=== PATIENT | female | born 1975 | race Caucasian/White ===

== ENCOUNTER 2021-12-20 13:46 | Outpatient (CLI) | payer OTHER, SELFPAY ==
--- NOTE | 2021-12-20 14:00 | CRLHL7_ITS ---
For Patients: As a result of the Cures Act, medical imaging exams and procedure reports are released immediately into your electronic medical record. You may view this report before your referring provider. If you have questions, please contact your health care provider. BILATERAL SCREENING MAMMOGRAM WITH COMPUTER-AIDED DETECTION AND TOMOSYNTHESIS TECHNIQUE: CC and MLO views were obtained. These mammographic images have been obtained using full-field digital technique. These mammographic images were interpreted with the benefit of computer-aided detection. Breast Tomosynthesis was used in this interpretation. COMPARISON FILM: 12/14/20, 01/18/19, 11/27/17. FINDINGS: The breasts are heterogeneously dense, which may obscure small masses IMPRESSION: There is no radiographic evidence for malignancy. ASSESSMENT: BI-RADS Category 1: Negative RECOMMENDATION: Routine screening mammogram in 1 year. A lay language report of this examination will be provided to the patient. Cricket Browning M.D. Diagnostic Radiologist [email or web address] AMARI/wm / be/Dictated by: Cricket Browning MD @ 12/23/2021 9:39:00 AM (Electronically Signed)
== END 2021-12-20 13:47 | disposition home or self-care (01) ==
LOC: MAMMO 13:47
PROVIDERS: PCP Family Medicine; Visit Provider Family Medicine
DX: Z12.31 Encounter for screening mammogram for malignant neoplasm of breast (principal); R92.2 Inconclusive mammogram
CPT/HCPCS: 77063; 77067

== ENCOUNTER 2022-04-04 13:34 | Outpatient (CLI) | payer OTHER, SELFPAY ==
[2022-04-04 16:14] LABS: Cholesterol* 191 mg/dL (90-199)
[2022-04-04 16:15] LABS: HDL Cholesterol* 91 mg/dL (>=50); LDL Cholesterol Calculated 71 mg/dL (<100); Triglycerides* 145 mg/dL (40-149)
== END 2022-04-04 13:35 | disposition home or self-care (01) ==
PROVIDERS: PCP Family Medicine; Visit Provider Registered Nurse
DX: Z01.419 Encounter for gynecological examination (general) (routine) without abnormal findings (principal); Z13.6 Encounter for screening for cardiovascular disorders; Z13.29 Encounter for screening for other suspected endocrine disorder
CPT/HCPCS: 80061; 84443

== ENCOUNTER 2022-06-12 13:47 | Outpatient (CLI) | payer OTHER, SELFPAY | END 2022-06-12 13:48 | disposition home or self-care (01) | LOC: LONREF 13:49 | PROVIDERS: PCP Family Medicine; Visit Provider Nurse Practitioner Family | DX: R60.9 Edema, unspecified (principal) | CPT/HCPCS: 80053 ==

== ENCOUNTER 2022-09-02 14:56 | Outpatient (CLI) | payer OTHER, SELFPAY | END 2022-09-02 14:57 | disposition home or self-care (01) | LOC: LONREF 14:59 | PROVIDERS: PCP Family Medicine; Visit Provider Family Medicine | DX: Z01.818 Encounter for other preprocedural examination (principal) | CPT/HCPCS: 80048 ==

== ENCOUNTER 2022-12-23 08:32 | Outpatient (CLI) | payer OTHER, SELFPAY ==
--- NOTE | 2022-12-23 08:45 | CRLHL7_ITS ---
For Patients: As a result of the Century Cures Act, medical imaging exams and procedure reports are released immediately into your electronic medical record. You may view this report before your referring provider. If you have questions, please contact your health care provider. BILATERAL SCREENING MAMMOGRAM WITH COMPUTER-AIDED DETECTION AND TOMOSYNTHESIS TECHNIQUE: CC and MLO views were obtained. These mammographic images have been obtained using full-field digital technique. These mammographic images were interpreted with the benefit of computer-aided detection. Breast Tomosynthesis was used in this interpretation. COMPARISON FILM: 12-20-21, 12-13-20, 11-28-19. FINDINGS: The breasts are heterogeneously dense, which may obscure small masses IMPRESSION: There is no radiographic evidence for malignancy. ASSESSMENT: BI-RADS Category 1: Negative RECOMMENDATION: Routine screening mammogram in 1 year. A lay language report of this examination will be provided to the patient. Cricket Browning M.D. Diagnostic Radiologist [email or web address] MATHIEU/Dictated by: Cricket Browning MD @ 12/23/2022 12:29:00 PM (Electronically Signed)
== END 2022-12-23 08:33 | disposition home or self-care (01) ==
LOC: MAMMO 08:33
PROVIDERS: PCP Family Medicine; Visit Provider Registered Nurse
DX: Z12.31 Encounter for screening mammogram for malignant neoplasm of breast (principal); R92.2 Inconclusive mammogram
CPT/HCPCS: 77063; 77067

== ENCOUNTER 2023-05-04 09:06 | Outpatient (CLI) | payer OTHER, SELFPAY ==
--- NOTE | 2023-05-04 10:38 | W.ANESCHARGE ---
Anesthesia Charges Start Date/Time Anesthesia Start Date: 05/04/23 Anesthesia Start Time: 10:10 Stop Date/Time Anesthesia Stop Date: 05/04/23 Anesthesia Stop Time: 10:36
--- NOTE | 2023-05-04 10:49 | W.ANESCHARGE ---
Anesthesia Charges Start Date/Time Anesthesia Start Date: 05/04/23 Anesthesia Start Time: 10:10 Stop Date/Time Anesthesia Stop Date: 05/04/23 Anesthesia Stop Time: 10:36
== END 2023-05-04 09:07 | disposition home or self-care (01) ==
LOC: OP CLINIC 09:07
PROVIDERS: PCP Family Medicine; Visit Provider Surgery
DX: Z12.11 Encounter for screening for malignant neoplasm of colon (principal); K64.4 Residual hemorrhoidal skin tags
CPT/HCPCS: 00811; 00812; 45378; J2704

== ENCOUNTER 2023-05-06 08:26 | Outpatient (CLI) | payer OTHER, SELFPAY ==
--- NOTE | 2023-05-06 08:45 | MM_ITS ---
Patient: NEHEMIAH HOLBROOK Facility:?[facility] Patient ID:?[id number] Site Patient ID:?[id number] Site :?[id number] Study:?XRay-Breast Bilateral 3D W/CAD-05/06/2023 8:57:58 AM Ordering Physician:?Yaquelin Mathew Final Report: BILATERAL DIAGNOSTIC DIGITAL MAMMOGRAM WITH COMPUTER-AIDED DETECTION AND TOMOSYNTHESIS LEFT BREAST ULTRASOUND CLINICAL HISTORY: LEFT breast lump. COMPARISON: 12/23/2022, 12/20/2021, 12/14/2020 TECHNIQUE: Digital BILATERAL mammogram in 4 projections with tomosynthesis and computer- aided detection. Real-time ultrasound imaging of LEFT breast with imaging documentation. BREAST COMPOSITION: The breasts are heterogeneously dense, which may obscure small masses. FINDINGS: 3D CC/MLO bilateral mammogram images submitted. No suspicious masses or architectural distortion. No adenopathy or suspicious calcifications. Targeted left breast ultrasound performed. At 2 o`clock 6 cm from the nipple, normal fibroglandular tissue is present. No fibrocystic change or mass. IMPRESSION: Normal bilateral mammograms and normal targeted left breast ultrasound. No suspicious findings. No evidence of malignancy. RECOMMENDATIONS: Annual bilateral screening mammography. Results and recommendations discussed with the patient. A lay language report of this examination will be provided to the patient. BI-RADS Category 2: Benign. Dictated by Cricket Browning MD @ 05/06/2023 10:13:05 AM CRL:jaquan RD/Dictated by: Cricket Browning MD @ 05/06/2023 10:13:00 AM Signed by:?Cricket Browning MD @05/06/2023 11:10:31 AM (Electronic Signature)
--- NOTE | 2023-05-06 09:15 | US_ITS ---
Patient: NEHEMIAH HOLBROOK Facility:?[facility] Patient ID:?[id number] Site Patient ID:?[id number] Site :?[id number] Study:?US-Breast Left Dr. Browning to read-05/06/2023 9:24:42 AM Ordering Physician:CRYSTAL Final Report: PLEASE SEE BILATERAL DIAGNOSTIC MAMMOGRAM OF SAME DAY FOR COMBINED REPORT. CRL:jaquan RD/Dictated by: Cricket Browning MD @ 05/06/2023 10:13:00 AM Signed by:?Cricket Browning MD @05/06/2023 11:10:26 AM (Electronic Signature)
== END 2023-05-06 08:27 | disposition home or self-care (01) ==
LOC: MAMMO 08:27
PROVIDERS: PCP Family Medicine; Visit Provider Registered Nurse
DX: N63.20 Unspecified lump in the left breast, unspecified quadrant (principal); N64.4 Mastodynia
CPT/HCPCS: 76642; 77066; G0279

== ENCOUNTER 2023-12-29 14:24 | Outpatient (CLI) | payer OTHER, SELFPAY ==
--- NOTE | 2023-12-29 14:40 | CRLHL7_ITS ---
For Patients: As a result of the Century Cures Act, medical imaging exams and procedure reports are released immediately into your electronic medical record. You may view this report before your referring provider. If you have questions, please contact your health care provider. BILATERAL SCREENING MAMMOGRAM WITH COMPUTER-AIDED DETECTION AND TOMOSYNTHESIS TECHNIQUE: CC and MLO views were obtained. These mammographic images have been obtained using full-field digital technique. These mammographic images were interpreted with the benefit of computer-aided detection. Breast Tomosynthesis was used in this interpretation. COMPARISON FILM: 05/06/23, 12/23/22, 12/20/21. FINDINGS: The breasts are heterogeneously dense, which may obscure small masses. IMPRESSION: There is no radiographic evidence for malignancy. ASSESSMENT: BI-RADS Category 1: Negative RECOMMENDATION: Routine screening mammogram in 1 year. A lay language report of this examination will be provided to the patient. Cricket Browning M.D. Diagnostic Radiologist [email or web address] SP/Dictated by: Cricket Browning MD @ 01/04/2024 11:01:00 AM (Electronically Signed)
== END 2023-12-29 14:25 | disposition home or self-care (01) ==
LOC: MAMMO 14:25
PROVIDERS: PCP Family Medicine; Visit Provider Registered Nurse
DX: Z12.31 Encounter for screening mammogram for malignant neoplasm of breast (principal); R92.333 Mammographic heterogeneous density, bilateral breasts
CPT/HCPCS: 77063; 77067

== ENCOUNTER 2024-02-12 06:59 | Outpatient (CLI) | payer OTHER, SELFPAY ==
--- NOTE | 2024-02-12 07:15 | CRLHL7_ITS ---
For Patients: As a result of the Century Cures Act, medical imaging exams and procedure reports are released immediately into your electronic medical record. You may view this report before your referring provider. If you have questions, please contact your health care provider. CLINICAL HISTORY: Pelvic and perineal pain TECHNIQUE: 2D varela scale ultrasound. In addition color Doppler and spectral Doppler analysis was performed of the pelvis using a transabdominal and transvaginal approach. FINDINGS: Complex fluid distends the endometrial canal. The endometrial canal measures up to 3.2 cm. The endometrial stripe appears lobular and measures up to 9 millimeters. Uterus measures 9.0 x 5.5 x 6.7 cm. Intramural fibroid is present posterior lower uterine segment measuring 1.6 x 1.0 x 1.5 cm. Multiple cervical nabothian cysts are incidentally noted. The right ovary measures 2.6 x 1.2 x 1.4 cm in size and the left ovary is not visualized. The right ovary demonstrates normal arterial and venous blood flow on color Doppler and spectral Doppler analysis. Simple right paraovarian cyst is present measuring 1.2 x 0.9 x 1.2 cm. IMPRESSION: Simple right paraovarian cyst measures 1.2 cm. No adnexal mass or ovarian torsion. Left ovary not visualized. Distention of the endometrial canal with complex fluid, likely blood products with the endometrial cavity measuring up to 3.2 cm. The endometrium is somewhat lobular and measures approximately 9 millimeters. Dictated by Cricket Browning MD @ 02/12/2024 9:35:51 AM (Electronically Signed)
== END 2024-02-12 07:00 | disposition home or self-care (01) ==
LOC: US 06:59
PROVIDERS: PCP Family Medicine; Visit Provider Registered Nurse
DX: R10.2 Pelvic and perineal pain (principal); N83.291 Other ovarian cyst, right side
CPT/HCPCS: 76830; 76856

== ENCOUNTER 2024-05-27 09:28 | Outpatient (CLI) | payer OTHER, SELFPAY | END 2024-05-27 09:29 | disposition home or self-care (01) | LOC: LKVREF 09:29 | PROVIDERS: PCP Family Medicine; Visit Provider Family Medicine | DX: R10.12 Left upper quadrant pain (principal) | CPT/HCPCS: 80048 ==

== ENCOUNTER 2024-06-08 06:06 | Day surgery (SDC) | payer OTHER, SELFPAY ==
[2024-06-08] VITALS (20 sets, daily range): BP systolic 99–135; BP diastolic 58–99; PULSE 57–108; RESP 16–20; TEMP 35.8–37.1; O2SAT 95–100; BMI 29.0
[2024-06-08] MEDS: LACTATED RINGERS 1000 ML 1,000 ML 100 ML IV ×2 (06:10→10:02)
[2024-06-08] MEDS: ACETAMINOPHEN 500 MG TABLET 1000 MG PO (06:30)
[2024-06-08] MEDS: GABAPENTIN 600 MG TABLET PO (06:30)
[2024-06-08] MEDS: SCOPOLAMINE 1 MG/3 DAY PATCH 1 PATCH TRANSDERMA (06:30)
[2024-06-08] MEDS: SODIUM CHLORIDE 0.9 % (FLUSH) 10 ML SYRINGE IVF (06:40)
[2024-06-08 06:44] LABS: Hemoglobin* 13.5 gm/dL (12.0-16.0)
[2024-06-08 06:59] LABS: Creatinine* 0.9 mg/dL (0.5-1.5); Est. Creatinine Clearance* 73.12; Estimated Glomerular Filt Rate 80 ml/min
--- NOTE | 2024-06-08 07:18 | W.PM.H&PU ---
History & Physical Update History & Physical Update H&P Reviewed and patient assessed: No changes noted
[2024-06-08] MEDS: CEFAZOLIN 2 GM INJ IVP (07:35)
--- NOTE | 2024-06-08 09:49 | P.ANES_ITS ---
Anesthesia Charges Start Date/Time Anesthesia Start Date: 06/08/24 Anesthesia Start Time: 07:20 Stop Date/Time Anesthesia Stop Date: 06/08/24 Anesthesia Stop Time: 10:25 Coding CPT Codes CPT Codes: ANESTH SURG LOWER ABDOMEN - 42884 ([id number]) P2 - PATIENT W/MILD SYST DISEASE, QK - ELECTRONIC SECURITY TECHNICIAN 2-4 CNCRNT ANES PROC, QX - IT RISK AND ASSURANCE SENIOR MANAGER SVC W/ MD MED DIRECTION
--- NOTE | 2024-06-08 09:49 | W.ANESCHARGE ---
Anesthesia Charges Start Date/Time Anesthesia Start Date: 06/08/24 Anesthesia Start Time: 07:20 Stop Date/Time Anesthesia Stop Date: 06/08/24 Anesthesia Stop Time: 10:25 Coding CPT Codes CPT Codes: ANESTH SURG LOWER ABDOMEN - 87212 ([id number]) P2 - PATIENT W/MILD SYST DISEASE, QK - CENTRAL SUPPLY TECHNICIAN SUPERVISOR 2-4 CNCRNT ANES PROC, QX - MANAGER SHOP SVC W/ MD MED DIRECTION
--- NOTE | 2024-06-08 09:50 | P.NB_ITS ---
Nerve Block Nerve Block Time Seen by Provider: 07:30 Date Seen: 06/08/24 Type of block requested by surgeon for post-operative analgesia: TAP Side: bilateral Time out performed: Yes Verification of patient name: Yes Verification of date of : Yes Site marking: site marked Name of person performing procedure: Wally Continuous monitoring Was continuous monitoring of O2 sat, B/P, rn cardiac rehab, recorded every 15 minutes?: Yes Procedure Checklist: sterile prep, needles and gloves Ultrasound guided. Images saved: Yes Medications given in 5ml increments after negative aspiration: Marcaine %: 0.25 mL: 30 Needle gauge: 20 and Exparel mL: 10 Patient tolerated procedure well: Yes Additional comments: Needle noted between internal oblique and transversus abdominus. Local spread visualized Block Charges Block Charge (with Pro Fee): TAP Bilateral Use of Ultrasound Machine for Block: Yes- US Guidance/pain block
[2024-06-08] MEDS: LIDOCAINE 1%-EPI 1:100,000 20 ML INFILTRATI (10:10)
--- NOTE | 2024-06-08 10:42 | P.ANES_ITS ---
Anesthesia Charges Start Date/Time Anesthesia Start Date: 06/08/24 Anesthesia Start Time: 07:20 Stop Date/Time Anesthesia Stop Date: 06/08/24 Anesthesia Stop Time: 10:25 Coding CPT Codes CPT Codes: ANESTH SURG LOWER ABDOMEN - 95688 ([id number]) P1 - NORMAL HEALTHY PATIENT, QX - PARENT TRAINER AYAH W/ MED DIRECTION, QK - DOUGH SCALER AND MIXER 2-4 CNCRNT ANES PROC
--- NOTE | 2024-06-08 10:42 | W.ANESCHARGE ---
Anesthesia Charges Start Date/Time Anesthesia Start Date: 06/08/24 Anesthesia Start Time: 07:20 Stop Date/Time Anesthesia Stop Date: 06/08/24 Anesthesia Stop Time: 10:25 Coding CPT Codes CPT Codes: ANESTH SURG LOWER ABDOMEN - 65444 ([id number]) P1 - NORMAL HEALTHY PATIENT, QX - INDUSTRIAL MAINTENANCE REPAIRER AYAH W/ MED DIRECTION, QK - MUSIC THERAPY TEACHER 2-4 CNCRNT ANES PROC
[2024-06-08] MEDS: HYDROmorphone 0.5 mg/0.5 ml inj IVP ×2 (10:51→12:05)
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
--- NOTE | 2024-06-08 11:02 | P.ANES_ITS ---
Anesthesia Charges Start Date/Time Anesthesia Start Date: 06/08/24 Anesthesia Start Time: 07:20 Stop Date/Time Anesthesia Stop Date: 06/08/24 Anesthesia Stop Time: 10:35 Coding CPT Codes CPT Codes: ANESTH SURG LOWER ABDOMEN - 86465 ([id number]) QK - VIDEO PRODUCTION ENGINEER 2-4 CNCRNT ANES PROC, QX - CREDIT OFFICER SVC W/ MD MED DIRECTION, P2 - PATIENT W/MILD SYST DISEASE
--- NOTE | 2024-06-08 11:02 | W.ANESCHARGE ---
Anesthesia Charges Start Date/Time Anesthesia Start Date: 06/08/24 Anesthesia Start Time: 07:20 Stop Date/Time Anesthesia Stop Date: 06/08/24 Anesthesia Stop Time: 10:35 Coding CPT Codes CPT Codes: ANESTH SURG LOWER ABDOMEN - 77706 ([id number]) QK - SKEIN DYER 2-4 CNCRNT ANES PROC, QX - FINISHER ACCORDION SVC W/ MD MED DIRECTION, P2 - PATIENT W/MILD SYST DISEASE
[2024-06-08] MEDS: LACTATED RINGERS 1000 ML 1,000 ML 40 ML IV (11:59)
[2024-06-08] MEDS: IBUPROFEN 600 MG TABLET PO ×2 (12:05→18:31)
--- NOTE | 2024-06-08 12:53 | W.ANESCHARGE ---
Anesthesia Charges Start Date/Time Anesthesia Start Date: 06/08/24 Anesthesia Start Time: 07:20 Stop Date/Time Anesthesia Stop Date: 06/08/24 Anesthesia Stop Time: 10:35 Coding CPT Codes CPT Codes: ANESTH SURG LOWER ABDOMEN - 22977 ([id number]) P1 - NORMAL HEALTHY PATIENT, QX - LUBE MAN AYAH W/ MED DIRECTION, QK - AIRCRAFT INSTRUMENT MECHANIC 2-4 CNCRNT ANES PROC
--- NOTE | 2024-06-08 12:53 | P.ANES_ITS ---
Anesthesia Charges Start Date/Time Anesthesia Start Date: 06/08/24 Anesthesia Start Time: 07:20 Stop Date/Time Anesthesia Stop Date: 06/08/24 Anesthesia Stop Time: 10:35 Coding CPT Codes CPT Codes: ANESTH SURG LOWER ABDOMEN - 86317 ([id number]) P1 - NORMAL HEALTHY PATIENT, QX - MOLD SHOP SUPERVISOR AAYH W/ MED DIRECTION, QK - OFFICE HELPER 2-4 CNCRNT ANES PROC
[2024-06-08] MEDS: OXYCODONE 5 MG TABLET PO (18:31)
[2024-06-08] MEDS: SIMETHICONE 80 MG TAB.CHEW 160 MG PO (18:32)
[2024-06-09] MEDS: IBUPROFEN 600 MG TABLET PO ×2 (01:16→06:30)
[2024-06-09 02:43] VITALS: BP 104/56; PULSE 67; RESP 16; TEMP 36.6; O2SAT 95
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
[2024-06-09 06:35] LABS: Creatinine* 0.9 mg/dL (0.5-1.5); Est. Creatinine Clearance* 73.12; Estimated Glomerular Filt Rate 80 ml/min
[2024-06-09 07:00] VITALS: BP 113/80; PULSE 74; RESP 18; TEMP 36.6; O2SAT 98
--- NOTE | 2024-06-09 07:27 | PC.NURSE ---
Castillo catheter removed this AM with catheter tip intact. Backfill completed per order with 225 mL sterile saline used per pt tolerance- pt was then able to void 225 mL.
--- NOTE | 2024-06-09 08:11 | P.DS_ITS ---
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 Intraoperative findings: On exam under anesthesia: Normal appearing external genitalia. Normal appearing cervix. The uterus was anteverted, approximately 6 week size, mobile. No masses palpable. Adnexa without mass or fullness palpable. Dark brown, old blood expressed from the uterus during dilation. On laparoscopy: Omental adhesion to the anterior abdominal wall. Bulky uterus with distended left cornual. Adhesions of the left fallopian tube and left cornual 2 left ovary. Left side of uterus appeared Left ovary with corpus luteum cyst noted. Right fallopian tube was noted to be ligated and right ovary was normal appearing. Filmy adhesion of the bladder noted on previous hysterotomy scar. Scattered hemosiderin lesions on pelvic peritoneum from back flow of menstrual bleeding. Posterior cul-de-sac within normal limits- again, with scattered hemosiderin lesions on peritoneum. Normal appearing liver. Cystoscopy: The dome of the bladder was noted to be without defect and no evidence of any sutures from the vaginal cuff causing injury. Normal urine flow was noted through both ureteral orifices. She had an uncomplicated surgery. Postoperative course has been uneventful. Vitals have been stable. She has remained afebrile. Today, on postoperative day 1, she reports the pain is well controlled. She has been able to ambulate Without difficulty. She is tolerating regular diet. She is passing flatus. Eubanks catheter has been removed, and she is voiding without difficulty. Hgb 12.0 this AM. Time Spent with Patient Time attestation: Total time spent providing and/or coordinating discharge services: Time spent: Less than 30 minutes LEAD INGOT MOLDER - Exam Physical Exam: Vital signs: Temp Pulse Resp BP Pulse Ox O2 Del Method 97.8 F 67 16 104/56 L 95 Room Air 06/09/24 02:43 06/09/24 02:43 06/09/24 02:43 06/09/24 02:43 06/09/24 02:43 06/09/24 02:43 Narrative: Physical exam: General: No acute distress Psych: Alert and oriented x4, full affect HEENT: Normocephalic, atraumatic Heart: Regular rate and rhythm, no murmur rub or gallop Lungs: Clear to auscultation bilaterally Abdomen: Normoactive bowel sounds, soft, no tenderness, rebound, or guarding Incision(s): Appropriately tender to palpation. Clean, dry, and intact. No erythema, induration, or abnormal discharge/breakdown. LLQ port with surrounding ecchymosis - minimally tender. Skin: No lesions or rashes Lower extremities: No edema or erythema Pelvic exam: Scant bleeding on pad LEAD INGOT MOLDER - DS: Data Data Completed and Pending Labs on day of discharge: Labs from last 24 hours 06/09/24 06:04 Hgb 12.0 Creatinine 0.9 Estimated Creat Clear 73.12 Estimated GFR 80 Procedures Procedures: Procedures Operation Date: 06/08/24 07:15 Actual Procedure Side Surgeon p Total Laparoscopic hysterectomy, bilateral salpingectomy, lysis of adhesions and cystoscopy Rissa Bonilla MD Discharge Plan Discharge Disposition: Home w/ Parent or Adult Discharging Surgeon: Rissa Bonilla Follow-Up Appointment: 06/22/24 @ 1430 and 07/28/24 @ 1500 Prescriptions: New acetaminophen 500 mg Tablet 1,000 mg PO Q6H PRN30 Days Qty: 45 0RF ibuprofen 600 mg Tablet 600 mg PO Q6H PRN (Reason: Abdominal Pain) 30 Days Qty: 45 0RF simethicone 80 mg Tablet,Chewable 160 mg PO Q4H PRN (Reason: gas) Qty: 30 0RF oxycodone 5 mg Tablet 5 mg PO Q6H PRN (Reason: Moderate Pain) 14 Days Qty: 10 0RF sennosides [senna] 8.6 mg tablet 8.6 mg PO BID PRN (Reason: constipation) Qty: 30 0RF Continued multivitamin Tablet 1 tab PO QAM doxycycline hyclate 20 mg tablet 20 mg PO BID clindamycin phosphate 1 % lotion topical BID Additional Instructions: LAPAROSCOPY POSTOPERATIVE INSTRUCTIONS ACTIVITY Walking is encouraged, even if it is just short distances. Try to walk up to 6 times during the day. You may climb stairs as tolerated, but not for exercise. If you have a lengthy trip home after surgery, for 5 minutes or so every hour. To not participate strenuous activities, such as aerobic exercise. No heavy lifting/pushing/pulling for 4-6 weeks. Do not lift anything more than about 15 lbs (such as laundry, groceries, children, pets), vacuum, push heavy doors or grocery carts, etc. Do not put anything in the vagina for 6-8 weeks after surgery unless otherwise instructed by your doctor (including tampons, douching, sexual intercourse, etc). No driving for about 2 weeks after surgery, while you are taking narcotic pain medication, or until you feel that you are ready. Practice checking your blind spot and stepping hard on the brake. Avoid sitting or lying in bed for more than 2 hours at a time while you are awake to reduce your risk of blood clots. You may return to work when directed by your physician. Please contact your doctor if you need any return to work letters or medical leave paperwork to be completed. WOUND CARE You will have 4 small incisions on your abdomen. There will be dissolvable stitches under your skin that do not need to be removed. Shower daily after surgery. Clean your incision with mild antibacterial soap and water. Pat your incision dry with a clean towel. No tub baths until wound is completely healed. Wash your hands frequently, especially before touching your incision, changing any dressings, after using the restroom, and before eating. Avoid wearing tight clothing over your incision. Readable, loose clothing is more comfortable. Do not use hot tub, whirlpool or go swimming unless otherwise instructed by your health care provider. PAIN MANAGEMENT Take your oral pain medication as needed. You should be taking Ibuprofen 600mg every 6 hours with 650 mg of Tylenol every 6 hours. You can take these together every six hours or alternate them every 3 hours. You should then take the oxycodone as needed if you have breakthrough pain on top of the Tylenol and Ibuprofen. Some pain medications can cause constipation so you should take a stool softener (i.e. colace/senna) while you are on these medications. You may also take milk of magnesia or Miralax for constipation. AP take narcotic medications for pain, do not: Sales Service Coordinator operate motorized vehicles/equipment, drink alcoholic beverages, make important decision or sign legal documents. WHAT TO EXPECT AT HOME Recovery from surgery is generally 2-4 weeks, but sometimes longer for more strenuous activity. It is normal to be very tired during this time. It is normal to have some drainage or a small amount of vaginal bleeding after surgery which may last up to 8 weeks. You may go home with a eubanks catheter in your bladder. If so, you will need to follow up for a nurse visit in 7-10 days for removal. You will most likely experience gas pain, abdominal swelling, or shoulder pain for 24-72 hours after surgery. This is from the carbon dioxide gas put into your abdomen to better visualize your organs. A warm shower, heating pad, and/or walking may help. WHEN TO CALL YOUR DOCTOR : Fever (>100.4?F or 38.0?C) or chills. Incision problems such as redness, warmth, swelling, or foul-smelling drainage. Severe nausea or persistent vomiting. Bright red vaginal bleeding (soaking >2 pad/hour) or foul-smelling vaginal drainage. Severe pain not relieved with pain medication. Pain and swelling in your legs, especially if it is only on one side and not the other. Pain with urination, cloudy urine, or foul-smelling urine. Or if you have any other problems or questions. CALL 911 OR GO TO THE EMERGENCY ROOM IF YOU HAVE: Any shortness of breath, difficulty breathing, or chest pain. Follow-up: Cassius Hawkins MD [Primary Care Provider] - Discharge Orders: Discharge Order (Routine); Ordered 06/09/24 Ordered By: Rissa Bonilla
--- NOTE | 2024-06-09 10:37 | PC.NURSE ---
Discharge: Patient pleasant and cooperative, A&O. VSS, afebrile. SpO2 maintained above 90% on RA. Patient rates pain a 1/10 on abdomen, declined PRN medication. Denies nausea. Tolerating regular diet. IV removed with tip intact. Discharge instructions provided, all questions answered. Discharged to home with spouse.
== END 2024-06-09 10:32 | disposition home or self-care (01) ==
LOC: OR 06:07 → MEDSURG 06:12
PROVIDERS: PCP Family Medicine; Visit Provider Obstetrics & Gynecology
PROC: 0UT9FZZ Resection of Uterus, Via Natural or Artificial Opening With Percutaneous Endoscopic Assistance (ICD-10-PCS; CPT 58571; principal; 2024-06-08 07:15)
DX: R10.2 Pelvic and perineal pain (principal); G89.29 Other chronic pain; K66.0 Peritoneal adhesions (postprocedural) (postinfection); N73.6 Female pelvic peritoneal adhesions (postinfective); N83.12 Corpus luteum cyst of left ovary; N99.85 Post endometrial ablation syndrome; G89.18 Other acute postprocedural pain
CPT/HCPCS: 58571; 49329; 00840; 36415; 64488; 76942; 82565; 85018; 86850; 86900; 86901; 88307; A4314; A9270; J0330; J0665; J0666; J0690; J1100; J1171; J2250; J2371; J2405; J2704; J3010; J3490; J7120

== ENCOUNTER 2024-11-03 15:20 | Emergency (ER) | payer OTHER, SELFPAY ==
--- OUTSIDE RECORDS SUMMARY | 2024-11-03 15:23 | XMS_ITS | CCD ---
Author Name Interface, [id number] lity Address [facility] [address] [address] Organization [facility] Address [address] [address] Care Team Providers Care Insulation Helper Name Role Phone Lilly VILLELA, Daria Wilder Unavailable Allergies and Adverse Reactions Medication/Group Name Reaction Severity Date No known allergies Reason for Visit POST OP 30 MIN Medications Date Name Route Dose Frequency Instructions Start Date End Date Status Fill Status Indication 08/05 Multivi tamins Oral Tablet active 08/05 Clindam ycin Topical Lotion 1 % active 08/05 Doxycyc line Hyclate Oral orally 1.0 tablet 2 times per day active Problems Diagnosis Status Date of Diagnosis Resolution Date TAMARA II Active Social History Date Name Value 10/02/2022 Sex Female
--- OUTSIDE RECORDS SUMMARY | 2024-11-03 15:23 | XMS_ITS ---
Author Name Interface, [id number] lity Address [address] [facility] [address] [address] [facility] Address [address] [facility] [address] [place] [address] Allergies and Adverse Reactions Medication/Group Name Reaction Severity Date No known allergies Plan Date Type Value 10/30/2022 APPOINTMENT POST OP 30 MIN 10/02/2022 APPOINTMENT POST OP 30 MIN 09/18/2022 APPOINTMENT SURGERY 1 HR 08/05/2022 APPOINTMENT LAB 10 MIN 08/05/2022 APPOINTMENT NEW PT CONSULT 6 0 MIN Reason for Visit POST OP 30 MIN Encounters Date Name 08/05/2022 TAMARA II Medications Date Name Route Dose Frequency Instructions Start Date End Date Status Fill Status Indication 08/05 Doxycyc line Hyclate Oral orally 1.0 tablet 2 times per day active 08/05 Multivi tamins Oral Tablet active 08/05 Clindam ycin Topical Lotion 1 % active 10/02 flucona zole 150 MG Oral Tablet orally 1.0 tablet daily 2022 active TAMARA II Problems Diagnosis Status Date of Diagnosis Resolution Date TAMARA II Active Vital Signs Date Type Value 08/05/2022 BMI 29.50 08/05/2022 Height 66.00 08/05/2022 Weight 182.80 08/05/2022 Pain Scale 0.00 08/05/2022 BSA 1.93 08/05/2022 Heart Beat 78.00 08/05/2022 Body Temperature 99.20 08/05/2022 Oxygen Saturation 97.00 08/05/2022 Intravascular Systolic 114 08/05/2022 Intravascular Diastolic 74 08/05/2022 Respiratory Rate 16.00 10/02/2022 Oxygen Saturation 99.00 10/02/2022 Heart Beat 79.00 10/02/2022 Intravascular Systolic 110 10/02/2022 Intravascular Diastolic 72 10/02/2022 BSA 1.90 10/02/2022 BMI 28.76 10/02/2022 Height 66.00 10/02/2022 Weight 178.20 10/02/2022 Pain Scale 0.00 10/02/2022 Body Temperature 98.20 10/02/2022 Respiratory Rate 16.00 10/30/2022 Body Temperature 97.30 10/30/2022 Respiratory Rate 16.00 10/30/2022 Pain Scale 0.00 10/30/2022 Weight 180.40 10/30/2022 Oxygen Saturation 98.00 10/30/2022 BMI 29.12 10/30/2022 BSA 1.91 10/30/2022 Intravascular Systolic 118 10/30/2022 Intravascular Diastolic 70 10/30/2022 Heart Beat 91.00 10/30/2022 Height 66.00 Notes Section * REGASIFICATION PLANT OPERATOR Onc Consult Note GYNECOLOGIC ONCOLOGY CONSULT Patient Name: NEHEMIAH MORELAND Patient : 1975?? Patient ? Referring Physician: Prerna Gomez MD?? Primary GYNOncologist: Melva Diggs (Gynecological/Oncology) Date of Service: 08/05/2022?? Reason for Consult: I was asked by Dr. Gomez to see Nehemiah Moreland in regard to a recent diagnosis of TAMARA II. History of Present Illness (Transaction Manager Oncology): 46 y.o. * 04/04/22 Seen for wellness exam.?? Vulvar lesion noted. * 06/06/22 F/u of vulvar lesion.?? WE noted left inner upper labia minora measuring about 1 cm.?? Vulvar 3 mm punch biopsy obtained. * Pathology:?? TAMARA II Genetic Testing (Transaction Manager Oncology): Review of Systems: See intake ROS sheet.?? Positive for some hair loss. Past Medical History: Surgical History: Myringotomy tube placement and removal Cesarian section x 2 TL Endometrial ablation honey blender History: - 2 cesarian sections, 2 SAb Allergies: No known medication allergies Medications: * Doxycycline Hyclate Oral 20 mg tablet 1 tablet orally 2 times per day * Multivitamins Oral Tablet * Clindamycin Topical Lotion 1 % ?? Family History: Mother with breast cancer, HTN, hypercholesterolemia Father with prostate cancer, diabetes mellitus, HT Uncle with colon cancer MGF with lung cancer, HTN, CAD, CVA, Alcohol dependence MGM with??lung cancer, HTN, CAD, CVA, Alcohol dependence PGM with CVA Social History: .?? Two children.?? 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 Moderate alcohol use. Former smoker Health Maintenance: Vital Signs: Blood pressure: 114/74, Pulse: 78, Temperature: 99.2 F, Respirations: 16, O2 sat: 97%, Pain Scale: 0, Height: 66 in, Weight: 182.8 lb, BSA: 1.93, BMI: 29.5 kg/m2?? Physical Exam (Transaction Manager Oncology): General:?? Pleasant, , female sitting in NAD HEENT:?? AT/NC LN:?? Normal Back:?? Non-tended Lungs:?? Clear to auscultation Cardiac:?? RRR S1 S2 without murmur Abdomen:?? Active BS, soft, non-tender, no palpable masses Extremities:?? Normal Pelvic:?? External genitalia with 1 cm area of raised WE medial left labia minora.?? No other areasof dysplasia.?? Vagina and cervix normal. Laboratory Data: ? Imaging: Problems: * TAMARA II Assessment & Plan (Transaction Manager Oncology): 46 y.o. 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 I am recommending partial left vulvectomy as primary treatment.?? I explained that this is usually related to HPV and that ongoing surveillance of HPV disease of the genital tract recommended on an annual basis. Total time 40 min spent on review of outside records, charting, face to face examination and discussion, decision for surgery. Pain Care Management: Pain Scale: 0 Patient Care needs: Depressions Status: Not recorded on visit Smoking Status: Smoking Tobacco : none found; Smokeless Tobacco : none found; Vaping : none found Saige Diggs MD Copy to:??FAX Pipe C. Ross Gomez MD (Referring) ?? Electronically signed by Melva Diggs MD 08/05/2022 12:45 CDT
--- OUTSIDE RECORDS SUMMARY | 2024-11-03 15:23 | XMS_ITS ---
Author Name Interface, [id number] lity Address [address] [facility] [address] [address] [facility] Address [address] [facility] [address] [place] [address] Allergies and Adverse Reactions Medication/Group Name Reaction Severity Date No known allergies Plan Date Type Value 10/30/2022 APPOINTMENT POST OP 30 MIN Reason for Visit POST OP 30 MIN Encounters Date Name 10/30/2022 TAMARA II Medications Date Name Route Dose [...] II Active Vital Signs Date Type Value 10/30/2022 Body Temperature 97.30 10/30/2022 Respiratory Rate 16.00 10/30/2022 Pain Scale 0.00 10/30/2022 Weight 180.40 10/30/2022 Oxygen Saturation 98.00 10/30/2022 BMI 29.12 10/30/2022 BSA 1.91 10/30/2022 Intravascular Systolic 118 10/30/2022 Intravascular Diastolic 70 10/30/2022 Heart Beat 91.00 10/30/2022 Height 66.00 Notes Section * CLIENT ACCOUNT ASSISTANT Follow-Up GYNECOLOGIC ONCOLOGY FOLLOW-UP VISIT Patient Name:??NEHEMIAH HOLBROOK :??1975 Date of Visit:??10/30/2022 Referring Provider:??Prerna Gomez MD Attending:??Melva Diggs (Gynecological/Oncology) Chief Complaint (Label Fuser Tender Oncology): 6 week post op History of Present Illness (Label Fuser Tender Oncology): 47 y.o. with TAMARA 2-3 * 04/04/22 Seen for wellness exam.?? Vulvar lesion noted. * 06/06/22 F/u of vulvar lesion.?? WE noted left inner upper labia minora measuring about 1 cm.?? Vulvar 3 mm punch biopsy obtained. * Pathology:?? TAMARA II * 09/18/22:??Left partial simple vulvectomy.?? 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 Genetic Testing (Label Fuser Tender Oncology): Interval History (Label Fuser Tender Oncology) She feels great. ??She feels she is fully healed. ??In fact, she had her take a look??last week??and he said everything looked great, so she did go into the [facility] last week when it was so hot.?? No discharge??bleeding irritation. Review of Systems: A complete 14-point review of systems is negative except as noted??in the above history of present illness. 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 1 tab once. May repeat in 2 to 3 days if symptoms persist * Doxycycline Hyclate Oral 20 mg tablet 1 tablet orally 2 times per day * Clindamycin Topical Lotion 1 % * Multivitamins Oral Tablet Family History: Mother with breast cancer, HTN, hypercholesterolemia Father with prostate cancer, diabetes mellitus, HT Uncle with colon cancer MGF with lung cancer, HTN, CAD, CVA, Alcohol dependence MGM with??lung cancer, HTN, CAD, CVA, Alcohol dependence PGM with CVA Social History: .?? Two children.?? 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 Moderate alcohol use. Former smoker Health Maintenance: Vital Signs: Blood pressure: 118/70, Pulse: 91, Temperature: 97.3 F, Respirations: 16, O2 sat: 98%, Pain Scale: 0, Height: 66 in, Weight: 180.4 lb, BSA: 1.91, BMI: 29.12 kg/m2 Physical Exam (Label Fuser Tender Oncology): General:?? Pleasant, , female sitting in NAD Pelvic:??Left??labia majora??fully healed with no sign of??sutures or dehiscence. Laboratory Data: ? Imaging: Problems: * TAMARA II Assessment & Plan (Label Fuser Tender Oncology): 47 y.o. 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 Given that the edge was cauterized, recurrence risk is somewhat lower, but she will need to be seenfor surveillance to monitor for recurrence, either by our office, or her regular CLIENT ACCOUNT ASSISTANT.?She will prefer to be seen by her CLIENT ACCOUNT ASSISTANT??in [place]. She is healed extremely well,??and may resume??sexual intercourse, swimming and bathing in a bathtub.?? I wished her the very best of luck??and encouraged her to call us with any questions or concerns in the future.?? Pain Care Management: Pain Scale: 0 Patient Care needs: Depressions Status: Not recorded on visit Psycho-Social PHQ-9 Follow-up Plan (if applicable): Smoking Status: Smoking Tobacco : Never smoker; Smokeless Tobacco : none found; Vaping : none found Chloé Mir APRN, CNP Copy to:??FAX Pipe Gomez MD (Referring) Electronically signed by Chloé Mir APRN, CNP 10/30/2022 15:16 CDT
--- OUTSIDE RECORDS SUMMARY | 2024-11-03 15:23 | XMS_ITS | Clinical Summary ---
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) Take 1-2 tablets (5-10 mg) by mouth every 4 hours as needed for moderate to severe pain 20 tablet 09/19/19 23 Active senna-docusate (SENOKOT-S/PERICOLA CE) 8.6-50 MG tabletIndications: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) Take 1-2 tablets by mouth 2 times daily as needed for constipation (While on oral opioids.) 30 tablet 09/19/19 23 Active Active Problems Problem Noted Date Diagnosed Date TAMARA II (vulvar intraepithelial neoplasia II) Social History Tobacco Use Types Packs/Day Years Used Date Smoking Tobacco: Former Cigarettes Smokeless Tobacco: Never Adolescent Education Answer Date Record ed Getting School Help Needed Not on file 11/15 Comments No Sex and Gender Information Value Date Recorded Sex Assigned at Not on file Legal Sex Female 12:48 PM CDT Gender Identity Not on file Sexual Orientation Not on file Last Filed Vital Signs Vital Sign [place] Time Taken Comments Blood Pressure 112/72 09/18/2022 6:50 PM CDT Pulse 60 09/18/2022 6:50 PM CDT Temperature 36.2 C (97.2 F) 09/18/2022 6:50 PM CDT Respiratory Rate 12 09/18/2022 6:50 PM CDT Oxygen Saturation 100% 09/18/2022 6:50 PM CDT Inhaled Oxygen Concentration - - Weight 80.4 kg (177 lb 3.2 oz) 09/18/2022 1:00 P M CDT Height 167.6 cm (5' 6) 09/18/2022 1:00 PM CDT Body Mass Index 28.6 09/18/2022 1:00 PM CDT Plan of Treatment Health Maintenance Due Date Last Done Comments ADVANCE CARE PLANNING 1975 ANNUAL REVIEW OF HM ORDERS 1977 CT COLONOGRAPHY 1975 DIABETES SCREENING 1975 FIT 1975 FLEX SIG 1975 MAMMO SCREENING 1975 sDNA (Cologuard) 1977 YEARLY PREVENTIVE VISIT 1980 COLONOSCOPY 10/19/1987 COLORECTAL CANCER SCREENING 10/19/1987 HIV SCREENING 1992 HEPATITIS C SCREENING 10/19/1995 HEPATITIS B VACCINE (1 of 3 - 19+ 3-dose series) 1996 PAP 1998 LIPID 2017 COVID-19 VACCINE ( - season) 2023 PHQ-2 (once per calendar year) 2024 DTAP/TDAP/TD VACCINE (3 - Td or Tdap) 05/02/2024 05/02/2014, 03/07/2008 INFLUENZA VACCINE (#1) 2024 7, 12/07/2015, 12/18/2014, Additional history exists ZOSTER VACCINE (1 of 2) 10/19/2027 HPV VACCINE (No Doses Required) Completed MENINGITIS VACCINE Aged Out No longer eligible based on patient's age to complete this topic PNEUMOCOCCAL VACCINE: PEDIATRICS (0 to 5 YEARS) AND AT-RISK PATIENTS (6 to 49 YEARS) Aged Out No longer eligible based on patient's age to complete this topic Insurance [employer] Teams Hotshot Superintendent Relationship Specialty Start Date End Date Pipe Hawkins MD PCP - General Family Medicine 09/18/22
[2024-11-03 15:27] VITALS: BP 148/86; PULSE 97; RESP 18; TEMP 36.8; O2SAT 99; BMI 29.2
[2024-11-03 15:48] LABS: Appearance Urine Clear (Clear)
--- NOTE | 2024-11-03 16:32 | CRLHL7_ITS ---
For Patients: As a result of the Century Cures Act, medical imaging exams and procedure reports are released immediately into your electronic medical record. You may view this report before your referring provider. If you have questions, please contact your health care provider. INDICATION: Pelvic pain. History of hysterectomy in May. COMPARISON: 02/12/2024 pelvic ultrasound TECHNIQUE: Sonographic evaluation of the pelvis was performed utilizing varela-scale and color/spectral Doppler imaging techniques. Transvaginal images were obtained to improve assessment of the adnexa and endometrium. FINDINGS: Status post hysterectomy by report. The right ovary measures 2.6 x 1.0 x 1.7 cm. Vascular flow is detected in the right ovary. There is a anechoic right ovarian follicle or simple cyst measuring 1.3 x 1.2 x 1.1 centimeters. The left ovary measures 3.1 x 1.4 x 1.3 cm. Vascular flow is detected in the left ovary. No suspicious left ovarian mass is identified. Questionable trace intraperitoneal free fluid. IMPRESSION: No acute sonographic findings. Dictated by Chinmay Driver MD @ 11/03/2024 5:57:32 PM (Electronically Signed)
--- NOTE | 2024-11-03 16:43 | ED.ABDPAIN ---
HPI - Abdominal Pain General Date Seen: 11/03/24 Chief Complaint: Abdominal Pain Stated Complaint: abdominal pain Time Seen by Provider: 11/03/24 16:06 Source: patient Mode of arrival: ambulatory Limitations: no limitations History of Present Illness HPI narrative: Patient is a 49-year-old female presenting for lower abdominal pain. Pain is mostly around the suprapubic and pelvic region. She 1st noticed the pain today around noon. States he started with bloating and has gradually becoming more painful. States the pain is tolerable so. States she has had lower abdominal pain before after her store ectomy in May but that was diagnosed as post endometrial ablation syndrome and she does state this pain seems different. Has not eaten anything since 01/22 other than sips of water. Took some Tylenol at 14:30 with little relief. Also took some Tums and Advil with little improvement in symptoms. States she felt nauseated earlier but is currently not nauseated. Has not noticed any fevers or chills. Denies dysuria, polyuria, diarrhea, constipation, headache, lightheadedness, dizziness, weakness, numbness. No history of ovarian cyst that she is aware of. States she still has her ovaries. Describes the pain as a pressure sensation. Related Data Home Medications ?Medication ?Instructions ?Recorded ?Confirmed multivitamin 1 tab PO QAM 04/04/22 07/28/24 clindamycin phosphate 1 % lotion topical BID 06/12/22 07/28/24 Allergies Allergy/AdvReac Type Severity Reaction Status Date / Time No Known Allergies Allergy Unknown Verified 11/03/24 18:18 Review of Systems Status of ROS Reports: 10 or more systems reviewed and unremarkable except as noted in History and below [facility] Medical History Family history of diabetes mellitus ?Z83.3 - Family history of diabetes mellitus (ICD-10) Family history of breast cancer ?Z80.3 - Family history of malignant neoplasm of breast (ICD-10) Hemorrhoidal skin tag ?K64.4 - Residual hemorrhoidal skin tags (ICD-10) Fluid retention ?R60.9 - Edema, unspecified (ICD-10) TAMARA II (vulvar intraepithelial neoplasia II) ?N90.1 - Moderate vulvar dysplasia (ICD-10) Pelvic pain ?R10.2 - Pelvic and perineal pain (ICD-10) 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 - Post endometrial ablation syndrome (ICD-10) Pre-op examination ?Z01.818 - Encounter for other preprocedural examination (ICD-10) History of menorrhagia ?Z87.42 - Personal history of other diseases of the female genital tract (ICD-10) Gestational diabetes mellitus ?O24.419 - Gestational diabetes mellitus in , unspecified control (ICD-10) Surgical History H/O vulvectomy ?Z90.79 - Acquired absence of other genital organ(s) (ICD-10) Tympanic tube insertion (09/19/08) ?Z96.22 - Myringotomy tube(s) status (ICD-10) History of endometrial ablation ?Z98.890 - Other specified postprocedural states (ICD-10) History of section ?Z98.891 - History of uterine scar from previous surgery (ICD-10) History of bilateral ligation of fallopian tubes ?Z98.51 - Tubal ligation status (ICD-10) Family History Uncle Colon cancer Mother Breast cancer High blood pressure High cholesterol Osteoporosis Father FH: prostate cancer Diabetes High blood pressure Maternal Grandfather Stroke Heart disease High blood pressure High cholesterol Lung cancer Alcohol dependence Maternal Grandmother Alcohol dependence Stroke Heart disease Lung cancer High blood pressure High cholesterol Paternal Grandmother Stroke Paternal Grandmother Stroke Social History What is your current living situation?: I presently have a place to live Problems where you live: no known problems In the past 12 months, utilities in danger of being shut off: no In past 12 months, lack of transportation kept you from medical appts, meetings, work, or getting things needed for daily living: no In the past 12 mos, have been you worried that your food would run out before you had money to buy more?: never true In the past 12 mos, the food you bought just didn't last and you didn't have money to buy more?: never true Smoking Status: Former smoker How often do you have a drink containing alcohol: 2-4 times a month AUDIT-C Alcohol total score: 2 Non-prescribed substance use: denies use Caffeine: Yes How often does anyone, including family, friends and others, physically hurt you: never How often does anyone, including family, friends and others, insult or talk down to you: never How often does anyone, including family, friends and others, threaten you with harm: never How often does anyone, including family, friends and others, scream or curse at you: never service: No Exam Narrative: Exam Narrative: Const: Well-nourished, Well-developed, in mild distress Eyes: PERRL, no conjunctival injection, and symmetrical lids HENT: Atraumatic external nose and ears. Moist mucous membranes. Neck: Symmetric, trachea midline, No thyromegaly. CVS: RRR, No murmurs or gallops. Peripheral pulses 2+ and equal in all extremities RESP: Unlabored respiratory effort. Clear to auscultation bilaterally. GI: Nontender/Nondistended, No rebound or guarding. MSK:Extremities w/o deformity, Normal Active ROM Skin: Warm, Dry. No rashes or lesions. Neuro: Normal Muscle tone, No focal neurological deficits. Psych: Awake, Alert, & Oriented x3. Appropriate mood and affect. Const: Vital Signs, click to edit/add: Vital Signs - 24 hr 11/03/24 15:27 Temperature 98.2 F Pulse Rate [Pulse Oximeter] 97 Respiratory Rate 18 Blood Pressure [Ri ght Upper Arm] 148/86 H Pulse Oximetry 99 Oxygen Delivery Me thod Room Air Course Vital Signs Vital signs: Initial Vital Signs Temperature 98.2 F 11/03/24 15:27 Temperature Source Temporal Artery Scan 11/03/24 15:27 Pulse Rate 97 11/03/24 15:27 Pulse Rhythm Regular 11/03/24 15:27 Respiratory Rate 18 11/03/24 15:27 Blood Pressure 148/86 H 11/03/24 15:27 Blood Pressure Mean 106 H 11/03/24 15:27 Blood Pressure Position Sitting 11/03/24 15:27 Pulse Oximetry 99 11/03/24 15:27 Oxygen Delivery Method Room Air 11/03/24 15:27 Vital Signs Temperature 98.2 F 11/03/24 15:27 Pulse Rate 97 11/03/24 15:27 Respiratory Rate 18 11/03/24 15:27 Blood Pressure 148/86 H 11/03/24 15:27 Pulse Oximetry 99 11/03/24 15:27 Oxygen Delivery Method Room Air 11/03/24 15:27 Temperature 98.2 F 11/03/24 15:27 Pulse Rate 97 11/03/24 15:27 Respiratory Rate 18 11/03/24 15:27 Blood Pressure 148/86 H 11/03/24 15:27 Pulse Oximetry 99 11/03/24 15:27 Oxygen Delivery Method Room Air 11/03/24 15:27 MDM - Abdominal Pain MDM Narrative Medical decision making narrative: Patient is a 49-year-old female presenting to the emergency department for lower abdominal pain. The pain is more in lower abdomen but is hard to say if there is any pelvic pain. She still does have her ovaries and has had a relatively recent hysterectomy so I will do an ultrasound of the pelvis for better evaluation. If this does not show anything concerning will move on to his CT scan. Differential at this time includes abscess, ovarian torsion, appendicitis, UTI, gastroenteritis. Will order CBC, CMP, lipase, urinalysis. This could also be uncommon presentation of cardiac disease I will order an EKG and troponin also. Lab work returned showing no acute concerning abnormalities. EKG interpreted by myself shows no acute concerning findings. Troponin is within normal limits. Seems unlikely this is cardiac in nature. No signs of a UTI. Transvaginal ultrasound showed no acute concerning abnormalities. No signs of large cysts. There is a small cyst in the right ovary. CT scan of the abdomen pelvis shows no acute concerning abnormalities. At this time I do believe she is safe for discharge. Offered pain and nausea medication for home but patient declined. Lab Data Labs: Lab Results 11/03/24 11/03/24 Range/Units 15:25 17:33 WBC 7.95 (4.50-11.00) K/uL RBC 4.53 (4.00-5.20) m/uL Hgb 14.1 (12.0-16.0) gm/dL Hct 42.1 (33.0-51.0) % MCV 93 (80-100) fL MCH 31 (26-34) pg MCHC 34 (32-36) gm/dL RDW Coeff of Tali 11.7 (11.5-15.5) % Plt Count 246 (140-440) K/uL Neut % (Auto) 54.4 (42.0-72.0) % Lymph % (Auto) 36.4 (20-44) % [place] % (Auto) 8.1 (0.0-11.0) % Eos % (Auto) 0.6 (0.0-7.0) % Baso % (Auto) 0.4 (0.0-3.0) % Neut # (Auto) 4.33 (1.7-7.0) K/uL Lymph # (Auto) 2.89 (0.90-2.90) K/uL [place] # (Auto) 0.60 (0.00-0.90) K/UL Eos # (Auto) 0.05 (0.00-0.50) K/uL Baso # (Auto) 0.03 (0.00-0.30) K/uL Abs Immat Gran (auto) 0.01 (0.00-0.30) K/uL Imm/Tot Granulo (auto) 0.1 % Sodium 137 (135-149) mmol/L Potassium 4.2 (3.6-5.1) mmol/L Chloride 104 (96-114) mmol/L Carbon Dioxide 24 (20-32) mmol/L Anion Gap 9 (7-15) mEq/L BUN 15 (5-24) mg/dL Creatinine 0.7 (0.5-1.5) mg/dL Estimated Creat Clear 93.01 Estimated GFR 107 ml/min Glucose 84 (60-115) mg/dL Calcium 9.7 (8.4-10.6) mg/dL Total Bilirubin 0.5 (0.1-1.5) mg/dL AST 37 H (12-35) U/L ALT 14 (4-35) U/L Alkaline Phosphatase 42 (40-150) U/L Total Protein 8.4 H (6.0-8.3) g/dL Albumin 4.9 (3.3-5.0) g/dL Lipase 86 (23-300) U/L Urine Color Yellow (Yellow) Urine Appearance Clear (Clear) Urine pH 5.5 (5.0-8.5) Ur Specific [place] >= 1.030 (1.000-1.030) Urine Protein Negative (Negative) Urine Glucose (UA) Negative (Negative) Urine Ketones Negative (Negative) Urine Blood Negative (Negative) Urine Nitrite Negative (Negative) Urine Bilirubin Negative (Negative) Urine Urobilinogen 0.2 (0.2-1.0) Ur Leukocyte Esterase Negative (Negative) Urine RBC 0-2 (0-2) Urine WBC 0-2 (0-5) Ur Squamous Epith Cells None (None-Few) Urine Bacteria None (None) POC Troponin I 0.00 L (0.01-0.04) ng/ml Imaging Data Pelvic ultrasound: Attestation: I have reviewed the pertinent imaging results. Radiologist's impression: No acute sonographic findings. Dictated by Chinmay Driver MD @ 11/03/2024 5:57:32 PM (Electronically Signed) CT scan abdomen and pelvis: Attestation: I have reviewed the pertinent imaging results. Radiologist's impression: No acute findings within the abdomen and pelvis. Normal appendix. Please note that all CT scans at this facility use dose modulation, iterative reconstruction, and/or weight-based dosing when appropriate to reduce radiation dose to as low as reasonably achievable. Dictated by Ari Langston MD @ 11/03/2024 6:31:01 PM ECG Data Attestation: I personally reviewed and interpreted this ECG as follows: Prior ECG tracings: not available for review Interpretation: Normal sinus rhythm with rate 69 beats per minute, normal intervals, normal axis, no ST or T-wave abnormalities. Discharge Plan Discharge Clinical Impression: Abdominal pain Qualifiers: Abdominal location: lower abdomen, unspecified Qualified Code(s): R10.30 - Lower abdominal pain, unspecified Patient Disposition: Home, Self-Care Condition: Stable Instructions: Abdominal Pain (ED) Additional Instructions: I cannot say what exactly is causing abdominal pain but we do not see any acute emergent issues. Recommend following up outpatient if pain persist. Return to emergency department for new or worsening symptoms Prescriptions: No Action multivitamin Tablet 1 tab PO QAM clindamycin phosphate 1 % lotion topical BID Follow Up/Referrals: Cassius Hawkins MD [Primary Care Provider, Family Practice] [facility] Al[facility]: [facility] Info Instructions
--- OUTSIDE RECORDS SUMMARY | 2024-11-03 17:04 | XMS_ITS | CCD ---
Author Name Interface, [id number] lity Address [facility] [address], [place] [address] Organization [facility] Address [address] [address] Care Team Providers Care Professor Of Visual Arts Name Role Phone Lilly VILLELA, Daria Wilder [...]
--- OUTSIDE RECORDS SUMMARY | 2024-11-03 17:04 | XMS_ITS ---
Author Name Interface, [id number] lity Address [address] [facility] [address] [address] [facility] Address [address] [facility] [address] [place] [address] Allergies and Adverse Reactions Medication/Group Name Reaction [...] Temperature 98.20 10/02/2022 Respiratory Rate 16.00 10/30/2022 Weight 180.40 10/30/2022 Body Temperature 97.30 10/30/2022 Respiratory Rate 16.00 10/30/2022 Pain Scale 0.00 10/30/2022 Heart Beat 91.00 10/30/2022 BMI 29.12 10/30/2022 BSA 1.91 10/30/2022 Oxygen Saturation 98.00 10/30/2022 Intravascular Systolic 118 10/30/2022 Intravascular Diastolic 70 10/30/2022 Height 66.00 Notes Section * DIRECTOR OF CONVENTION SERVICES Onc Consult Note GYNECOLOGIC ONCOLOGY CONSULT Patient Name: NEHEMIAH MORELAND Patient : 1975?? Patient ? Referring Physician: Prerna Gomez MD?? Primary GYNOncologist: Melva Diggs (Gynecological/Oncology) Date of Service: 08/05/2022?? Reason for Consult: I was asked by Dr. Gomez to see Nehemiah Moreland in regard to a recent diagnosis of TAMARA II. History of Present Illness ([facility]): 46 y.o. * 04/04/22 Seen for wellness exam.?? Vulvar lesion noted. * 06/06/22 F/u of vulvar lesion.?? WE noted left inner upper labia minora measuring about 1 cm.?? Vulvar 3 mm punch biopsy obtained. * Pathology:?? TAMARA II Genetic Testing ([facility]): Review of Systems: See intake ROS sheet.?? Positive for some hair loss. 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 Moderate alcohol use. Former smoker Health Maintenance: Vital Signs: Blood pressure: 114/74, Pulse: 78, Temperature: 99.2 F, Respirations: 16, O2 sat: 97%, Pain Scale: 0, Height: 66 in, Weight: 182.8 lb, BSA: 1.93, BMI: 29.5 kg/m2?? Physical Exam ([facility]): General:?? Pleasant, , female sitting in [...] Problems: * TAMARA II Assessment & Plan ([facility]): 46 y.o. with recent diagnosis of [...]
--- OUTSIDE RECORDS SUMMARY | 2024-11-03 17:04 | XMS_ITS ---
Author Name Interface, [id number] lity Address [address] [facility] [address] [address] [facility] Address [address] [facility] [address] [place] [address] Allergies and Adverse Reactions Medication/Group Name Reaction [...] 91.00 10/30/2022 Height 66.00 Notes Section * RETAIL HELPER Follow-Up GYNECOLOGIC ONCOLOGY FOLLOW-UP VISIT Patient Name:??NEHEMIAH HOLBROOK :??1975 Date of Visit:??10/30/2022 Referring Provider:??Prerna Gomez MD Attending:??Melva Diggs (Gynecological/Oncology) Chief Complaint ([facility]): 6 week post op History of Present Illness ([employer] [facility]): 47 y.o. with TAMARA 2-3 * [...] from 6:00 to 12:00 margin. Genetic Testing ([facility]): Interval History ([facility]) She feels great. 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 Moderate alcohol use. Former smoker Health Maintenance: Vital Signs: Blood pressure: 118/70, Pulse: 91, Temperature: 97.3 F, Respirations: 16, O2 sat: 98%, Pain Scale: 0, Height: 66 in, Weight: 180.4 lb, BSA: 1.91, BMI: 29.12 kg/m2 Physical Exam ([facility]): General:?? Pleasant, , female sitting in NAD Pelvic:??Left??labia majora??fully healed with no sign of??sutures or dehiscence. Laboratory Data: ? Imaging: Problems: * TAMARA II Assessment & Plan ([facility]): 47 y.o. with recent diagnosis of [...] either by our office, or her regular RETAIL HELPER.?She will prefer to be seen by her RETAIL HELPER??in [place]. She is healed extremely well,??and may resume??sexual [...]
--- OUTSIDE RECORDS SUMMARY | 2024-11-03 17:04 | XMS_ITS | CCD ---
Author Name Interface, [id number] lity Address [facility] [address] Organization [facility] Address [address] [address] Care Team Providers Care Commodities Clerk Name Role Phone Lilly VILLELA, Daria Wilder Unavailable Allergies and Adverse Reactions Reason for Visit Medications Problems Social History
--- OUTSIDE RECORDS SUMMARY | 2024-11-03 17:04 | XMS_ITS ---
Author Name Interface, [id number] lity Address [address] [facility] [address] [address] [facility] Address [address] [facility] [address] [place] [address] Allergies and Adverse Reactions Medication/Group Name Reaction [...] Pain Scale 0.00 08/05/2022 BSA 1.93 08/05/2022 Respiratory Rate 16.00 08/05/2022 Heart Beat 78.00 08/05/2022 Body Temperature 99.20 08/05/2022 Intravascular Systolic 114 08/05/2022 Intravascular Diastolic 74 08/05/2022 Oxygen Saturation 97.00 10/02/2022 Oxygen Saturation 99.00 10/02/2022 Heart Beat [...] 91.00 10/30/2022 Height 66.00 Notes Section * GLASS NOVELTY MAKER Onc Consult Note GYNECOLOGIC ONCOLOGY CONSULT Patient Name: NEHEMIAH MORELAND Patient : 1975?? Patient ? Referring Physician: Prerna Gomez MD?? Primary GYNOncologist: Melva Diggs (Gynecological/Oncology) Date of Service: 08/05/2022?? Reason for Consult: I was asked by Dr. Gomez to see Nehemiah Moreland in regard to a recent diagnosis of TAMARA II. History of Present Illness ([facility]): 46 y.o. * 04/04/22 Seen for wellness exam.?? Vulvar lesion noted. * 06/06/22 F/u of vulvar lesion.?? WE noted left inner upper labia minora measuring about 1 cm.?? Vulvar 3 mm punch biopsy obtained. * Pathology:?? TAMARA II Genetic Testing ([facility]): Review of Systems: See intake ROS sheet.?? Positive for some hair loss. 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 Moderate alcohol use. Former smoker Health Maintenance: Vital Signs: Blood pressure: 114/74, Pulse: 78, Temperature: 99.2 F, Respirations: 16, O2 sat: 97%, Pain Scale: 0, Height: 66 in, Weight: 182.8 lb, BSA: 1.93, BMI: 29.5 kg/m2?? Physical Exam ([facility]): General:?? Pleasant, , female sitting in [...] Problems: * TAMARA II Assessment & Plan ([facility]): 46 y.o. with recent diagnosis of [...]
--- OUTSIDE RECORDS SUMMARY | 2024-11-03 17:04 | XMS_ITS ---
Author Name Interface, [id number] lity Address [address] [facility] [address] [address] [facility] Address [address] [facility] [address] [place] [address] Allergies and Adverse Reactions Medication/Group Name Reaction [...] 91.00 10/30/2022 Height 66.00 Notes Section * COLLISION CENTER MANAGER Follow-Up GYNECOLOGIC ONCOLOGY FOLLOW-UP VISIT Patient Name:??NEHEMIAH HOLBROOK :??1975 Date of Visit:??10/30/2022 Referring Provider:??Prerna Gomez MD Attending:??Melva Diggs (Gynecological/Oncology) Chief Complaint ([employer]): 6 week post op History of Present Illness ([facility] [employer]): 47 y.o. with TAMARA 2-3 * [...] from 6:00 to 12:00 margin. Genetic Testing ([facility] [facility]): Interval History ([facility] [facility]) She feels great. 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 Moderate alcohol use. Former smoker Health Maintenance: Vital Signs: Blood pressure: 118/70, Pulse: 91, Temperature: 97.3 F, Respirations: 16, O2 sat: 98%, Pain Scale: 0, Height: 66 in, Weight: 180.4 lb, BSA: 1.91, BMI: 29.12 kg/m2 Physical Exam ([facility]): General:?? Pleasant, , female sitting in NAD Pelvic:??Left??labia majora??fully healed with no sign of??sutures or dehiscence. Laboratory Data: ? Imaging: Problems: * TAMARA II Assessment & Plan ([facility]): 47 y.o. with recent diagnosis of [...] either by our office, or her regular COLLISION CENTER MANAGER.?She will prefer to be seen by her COLLISION CENTER MANAGER??in [place]. She is healed extremely well,??and may resume??sexual [...]
--- NOTE | 2024-11-03 17:23 | CRLHL7_ITS ---
For Patients: As a result of the Century Cures Act, medical imaging exams and procedure reports are released immediately into your electronic medical record. You may view this report before your referring provider. If you have questions, please contact your health care provider. INDICATION: Lower abdominal pain. TECHNIQUE: CT abdomen and pelvis acquired with 89 cc of Isovue 370 IV contrast. COMPARISON: None. FINDINGS: Lower chest: Unremarkable. Liver: Unremarkable. Normal in size and attenuation. No suspicious masses. Gallbladder and bile ducts: Unremarkable. No stones or inflammation. No biliary dilatation. Pancreas: Unremarkable. No mass or inflammation. Spleen: Unremarkable. Normal in size. No masses. Adrenal glands: Unremarkable. No nodules. Kidneys: Unremarkable. No suspicious masses, stones, or hydronephrosis. GI tract: Unremarkable. Normal in caliber. No sign of mass or inflammation. Normal appendix. Vasculature: Abdominal aorta is normal in caliber. Mesenteric arteries are patent. Lymph nodes: No lymphadenopathy. Peritoneum/Abdominal Wall: Unremarkable. No free air or significant free fluid. Pelvis: Status post hysterectomy. Bones: Unremarkable for age. IMPRESSION: No acute findings within the abdomen and pelvis. Normal appendix. Please note that all CT scans at this facility use dose modulation, iterative reconstruction, and/or weight-based dosing when appropriate to reduce radiation dose to as low as reasonably achievable. Dictated by Ari Langston MD @ 11/03/2024 6:31:01 PM (Electronically Signed)
[2024-11-03 17:47] LABS: Hematocrit* 42.1 % (33.0-51.0); Hemoglobin* 14.1 gm/dL (12.0-16.0); Immature Granulocytes Abs Auto 0.01 K/uL (0.00-0.30); Immature Granulocytes Pct Auto 0.1 %; Lymphocytes Absolute Auto 2.89 K/uL (0.90-2.90); Mean Corpuscular HGB Conc 34 gm/dL (32-36); Mean Corpuscular Hemoglobin 31 pg (26-34); Mean Corpuscular Volume 93 fL (80-100); RDW Coefficient of Variation % 11.7 % (11.5-15.5); Red Blood Count* 4.53 m/uL (4.00-5.20); Troponin, Point-of-Care* 0.00 ng/ml (0.01-0.04); White Blood Count* 7.95 K/uL (4.50-11.00)
[2024-11-03 17:51] LABS: Slide Review Reflex No
[2024-11-03 17:55] LABS: Albumin* 4.9 g/dL (3.3-5.0); Chloride* 104 mmol/L (96-114); Sodium* 137 mmol/L (135-149)
[2024-11-03 17:56] LABS: Potassium* 4.2 mmol/L (3.6-5.1)
[2024-11-03 17:58] LABS: Alanine Aminotransferase* 14 U/L (4-35); Alkaline Phosphatase* 42 U/L (40-150); Anion Gap 9 mEq/L (7-15); Aspartate Amino Transferase* 37 U/L (12-35); Bilirubin Total* 0.5 mg/dL (0.1-1.5); Blood Urea Nitrogen* 15 mg/dL (5-24); Calcium* 9.7 mg/dL (8.4-10.6); Carbon Dioxide* 24 mmol/L (20-32); Creatinine* 0.7 mg/dL (0.5-1.5); Est. Creatinine Clearance* 93.01; Estimated Glomerular Filt Rate 107 ml/min; Glucose* 84 mg/dL (60-115); Total Protein* 8.4 g/dL (6.0-8.3)
== END 2024-11-03 18:50 | disposition home or self-care (01) ==
PROVIDERS: Emergency Provider Student in an Organized Health Care Education/Training Program; PCP Family Medicine
DX: R10.30 Lower abdominal pain, unspecified (principal)
CPT/HCPCS: 36415; 74177; 76830; 80053; 81001; 83690; 84484; 85025; 93005; 93976; 99284; 99285; Q9967